=== PATIENT | male | born 1970 | race Caucasian/White ===

== ENCOUNTER 2021-06-08 17:47 | Emergency (ER) | payer MEDICAID ==
--- NOTE | 2021-06-08 19:34 | EDM.PDOCBH ---
ED HPI GENERAL MEDICAL PROBLEM - General Chief Complaint: Drug or Alcohol Abuse Stated Complaint: KEISHA HORNE Time Seen by Provider: 06/08/21 18:26 Source of Information: Reports: Patient, Family History Limitations: Reports: No Limitations - History of Present Illness INITIAL COMMENTS - FREE TEXT/NARRATIVE: Eder is a 51-year-old male presenting to the ED with his girlfriend and mother for medical clearance to go to [place] for alcohol intoxication and detox. The patient reports that he is a binge drinker drinking heavily every other day and consumes fireball, vodka, IPA beer and Norberto's hard lemonade. The patient has been in treatment 5 previous times but cannot maintain sobriety. 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 He is on gabapentin which his girlfriend states he abuses and when he is drinking he forgets to take his medications causing increased pain and caused him to drink more. She reports that on Friday the patient's pain was so bad that he took 6 of his 300 mg gabapentin at once. Patient is also on Xarelto due to the DVT. He recently moved here in November from [facility] to stay with his mother. He has not had any DUIs. The patient urinated on himself instead of giving a urine sample. - Related Data Allergies Allergy/AdvReac Type Severity Reaction Status Date / Time Penicillins Allergy Anaphylactic Verified 06/08/21 18:26 Shock Home Meds: Home Meds Gabapentin [Neurontin] 600 mg PO TID 06/08/21 [History] Rivaroxaban [Xarelto] 20 mg PO ACDINNER 06/08/21 [History] carvediloL [Carvedilol] 3.125 mg PO BID 06/08/21 [History] Past Medical History Cardiovascular History: Reports: Arrhythmia Psychiatric History: Reports: Addiction, Anxiety, Depression, PTSD Hematologic History: Reports: Other (See Below) Other Hematologic History: blood clot - Past Surgical History Cardiovascular Surgical History: Reports: None Social & Family History - Tobacco Use Tobacco Use Status *Q: Current Every Day Tobacco User Years of Tobacco use: 20 Packs/Tins Daily: 1 - Caffeine Use Caffeine Use: Reports: Coffee, Soda - Alcohol Use Days Per Week of Alcohol Use: 7 Number of Drinks Per Day: 10 Total Drinks Per Week: 70 - Recreational Drug Use Recreational Drug Use: No ED ROS GENERAL - Review of Systems Review Of Systems: See Below Constitutional: Reports: No Symptoms HEENT: Reports: No Symptoms Respiratory: Reports: No Symptoms Cardiovascular: Reports: No Symptoms Endocrine: Reports: No Symptoms GI/Abdominal: Reports: No Symptoms : Reports: Incontinence (Incontinence of urine) Musculoskeletal: Reports: No Symptoms Skin: Reports: No Symptoms Neurological: Reports: No Symptoms Psychiatric: Reports: Other (Alcohol addiction and intoxication. Abuses gabapentin) Hematologic/Lymphatic: Reports: No Symptoms Immunologic: Reports: No Symptoms ED EXAM, BEHAVIORAL HEALTH - Physical Exam Exam: See Below Exam Limited By: Intoxication General Appearance: Alert, No Apparent Distress, Anxious Eye Exam: Bilateral Eye: EOMI, PERRL Nose: Normal Inspection Throat/Mouth: Normal Inspection, Normal Oropharynx, Normal Voice, No Airway Compromise Head: Atraumatic, Normocephalic Neck: Normal Inspection, Supple, Non-Tender, Full Range of Motion Respiratory/Chest: No Respiratory Distress, Lungs Clear, Normal Breath Sounds Cardiovascular: Normal Peripheral Pulses, Regular Rate, Rhythm, No Murmur GI/Abdominal: Normal Bowel Sounds, Soft, Non-Tender. No: Guarding Back Exam: Normal Inspection, Full Range of Motion Extremities: Normal Inspection, Normal Range of Motion Neurological: Alert, Normal Cognition, Normal Gait, No Motor/Sensory Deficits, Oriented x 3 Psychiatric: Restless, Agitated Skin Exam: Warm, Dry, Intact, Normal color COURSE, BEHAVIORAL HEALTH COMP - Course Vital Signs: Last Vital Signs Temp 36.4 C 06/08/21 18:14 Pulse 105 H 06/08/21 18:29 Resp 16 06/08/21 18:29 BP 184/108 H 06/08/21 18:29 Pulse Ox 98 06/08/21 18:29 Orders, Labs, Meds: Active Orders 24 hr Category Date Time Status DRUG SCREEN, URINE [URCHEM] Stat Lab 06/08/21 17:47 Ordered Laboratory Tests 06/08/21 06/08/21 06/08/21 Range/Units 18:35 18:35 18:35 WBC 7.9 (4.5-11.0) K/uL RBC 5.79 (4.30-5.90) M/uL Hgb 17.5 H (12.0-15.0) g/dL Hct 50.8 (40.0-54.0) % MCV 88 (80-98) fL MCH 30 (27-31) pg MCHC 34 (32-36) % Plt Count 317 (150-400) K/uL Sodium 144 (140-148) mmol/L Potassium 4.3 (3.6-5.2) mmol/L Chloride 102 (100-108) mmol/L Carbon Dioxide 32 (21-32) mmol/L Anion Gap 9.6 (5.0-14.0) mmol/L BUN 13 (7-18) mg/dL Creatinine 0.9 (0.8-1.3) mg/dL Est Cr Clr Drug Dosing 102.52 mL/min Estimated GFR (MDRD) > 60 (>60) Glucose 106 (74-106) mg/dL Calcium 8.3 L (8.5-10.1) mg/dL Total Bilirubin 0.4 (0.2-1.0) mg/dL AST 24 (15-37) U/L ALT 26 (12-78) U/L Alkaline Phosphatase 90 (46-116) U/L Total Protein 8.0 (6.4-8.2) g/dL Albumin 4.1 (3.4-5.0) g/dL Globulin 3.9 H (2.3-3.5) g/dL Albumin/Globulin Ratio 1.1 L (1.2-2.2) Ethyl Alcohol 435 mg/dL SARS CoV-2 RNA Rapid QUENTIN 06/08/21 Range/Units 19:47 WBC (4.5-11.0) K/uL RBC (4.30-5.90) M/uL Hgb (12.0-15.0) g/dL Hct (40.0-54.0) % MCV (80-98) fL MCH (27-31) pg MCHC (32-36) % Plt Count (150-400) K/uL Sodium (140-148) mmol/L Potassium (3.6-5.2) mmol/L Chloride (100-108) mmol/L Carbon Dioxide (21-32) mmol/L Anion Gap (5.0-14.0) mmol/L BUN (7-18) mg/dL Creatinine (0.8-1.3) mg/dL Est Cr Clr Drug Dosing mL/min Estimated GFR (MDRD) (>60) Glucose (74-106) mg/dL Calcium (8.5-10.1) mg/dL Total Bilirubin (0.2-1.0) mg/dL AST (15-37) U/L ALT (12-78) U/L Alkaline Phosphatase (46-116) U/L Total Protein (6.4-8.2) g/dL Albumin (3.4-5.0) g/dL Globulin (2.3-3.5) g/dL Albumin/Globulin Ratio (1.2-2.2) Ethyl Alcohol mg/dL SARS CoV-2 RNA Rapid QUENTIN Negative Re-Assessment/Re-Exam: I reviewed the patient's labs showing an ethanol of 435, his CBC shows a leukocyte count of 7.9, hemoglobin of 17.5, hematocrit of 50.8 and a platelet count of 317,000. His comprehensive metabolic panel is unremarkable except for a calcium of 8.3. Patient is Covid negative. Patient refused to give urine first by urinating on himself and then by dumping the cup out in the toilet raising suspicion there may be something else on board. During the weight, the patient became increasingly agitated and eloped. He was not holdable as he is not homicidal or suicidal I was able to have normal conversation despite having an alcoholic for 35. Discharge vs Psych Eval/Treatment:: 06/08/21 19:35 patient eloped prior to the completion of his work-up to clear him to go to [place]. Departure - Departure Time of Disposition: 19:29 Disposition: Eloped 07 Clinical Impression: Alcohol abuse - Discharge Information Referrals: PCP,None [Primary Care Provider] - Care Plan Goals: Patient eloped from the ER prior to completion of his evaluation. He was not holdable as he was not actively suicidal or homicidal. Sepsis Event Note (ED) - Evaluation Sepsis Screening Result: No Definite Risk - Focused Exam Vital Signs: Vital Signs Temp Pulse Resp BP Pulse Ox 06/08/21 18:29 105 H 16 184/108 H 98 06/08/21 18:14 36.4 C 96 16 184/108 H 97 - Problem List & Annotations (1) Alcohol abuse SNOMED Code(s): 28786894 Code(s): F10.10 - ALCOHOL ABUSE, UNCOMPLICATED Status: Acute Priority: Medium Current Visit: Yes - Problem List Review Problem List Initiated/Reviewed/Updated: Yes
== END 2021-06-08 19:20 | disposition left against medical advice (07) ==
LOC: JP.ED 17:47
DX: F10.129 Alcohol abuse with intoxication, unspecified (principal); Z88.0 Allergy status to penicillin; Z79.01 Long term (current) use of anticoagulants; Z72.0 Tobacco use; Z20.822 Contact with and (suspected) exposure to COVID-19; Y90.8 Blood alcohol level of 240 mg/100 ml or more
CPT/HCPCS: 36415; 80053; 80307; 85027; 99284; U0002